=== PATIENT | male | born 1960 | race Caucasian/White ===

== ENCOUNTER 2023-02-25 10:44 | Outpatient (RCR) | payer MEDICAID, SELFPAY ==
--- NOTE | 2023-03-13 11:22 | ONC.NURNOTE ---
Dx: Lung cancer
== END 2023-08-24 23:59 | disposition home or self-care (01) ==
LOC: CCIC 10:44
PROVIDERS: Visit Provider Radiology Radiation Oncology
DX: C34.91 Malignant neoplasm of unspecified part of right bronchus or lung (principal)
CPT/HCPCS: 99211